=== PATIENT | female | born 1975 | race Caucasian/White ===

== ENCOUNTER 2017-12-07 17:58 | Emergency (ER) | payer SELFPAY ==
[~2017-12-07] VITALS: Ht 167.6 cm; Wt 72.0 kg
[2017-12-07 18:00] VITALS: BP 124/88
== END 2017-12-07 19:54 | disposition left against medical advice (07) ==
LOC: ER 18:07
DX: R42 Dizziness and giddiness (principal); R51 Headache; Z53.21 Procedure and treatment not carried out due to patient leaving prior to being seen by health care provider

== ENCOUNTER 2020-04-10 07:04 | Emergency (ER) | payer SELFPAY ==
[~2020-04-10] VITALS: Ht 170.2 cm; Wt 95.0 kg
[2020-04-10] MEDS ORDERED: SODIUM CHLORIDE 0.9% 1,000 ML IV ONE (08:08)
[2020-04-10 08:29] LABS: EOSINOPHILS % 11.9 % (0.0-5.0); HEMATOCRIT. 46.6 % (36.0-48.0); HEMOGLOBIN. 15.9 g/dL (12.0-16.0); LYMPHOCYTES % 11.8 % (20.0-50.0); MEAN CORPUSCULAR HEMOGLOBIN 30.7 pg (28.0-32.0); MEAN CORPUSCULAR VOLUME 90.2 fL (81.0-99.0); MEAN PLATELET VOLUME 8.6 fl (7.4-10.4); MONOCYTES % 9.3 % (2.0-8.0); PLATELET 264 x1000/uL (130-400); RED BLOOD CELL COUNT 5.17 mill/uL (4.2-5.4); RED CELL DISTRIBUTION WIDTH 14.3 % (11.6-14.6)
[2020-04-10 08:34] LABS: CHLORIDE 106 mEq/L (98-107); PROTHROMBIN TIME 10.7 sec (9.6-11.0)
[2020-04-10 08:39] LABS: ETHANOL BLOOD < 10 mg/dL
[2020-04-10 08:43] LABS: CREATINE KINASE 44 IU/L (26-192)
[2020-04-10 08:51] LABS: HCG SCREEN INDETERMINATE
[2020-04-10 09:00] LABS: CLARITY URINE CLEAR (CLEAR); COLOR URINE YELLOW (YELLOW); KETONES URINE NEGATIVE (NEGATIVE); LEUKOCYTE ESTERASE URINE TRACE (NEGATIVE); NITRITE URINE NEGATIVE (NEGATIVE); OCCULT BLOOD URINE NEGATIVE (NEGATIVE); PROTEIN URINE NEGATIVE (NEGATIVE); SPECIFIC GRAVITY URINE 1.018 (1.005-1.030)
[2020-04-10 09:36] LABS: *BARBITURATES SCREEN URINE NEGATIVE (NEGATIVE)
[2020-04-10 09:37] LABS: *BENZODIAZEPINES SCREEN URINE NEGATIVE (NEGATIVE); *COCAINE SCREEN URINE NEGATIVE (NEGATIVE); METHADONE URINE SCREEN NEGATIVE (NEGATIVE); OPIATES URINE SCREEN NEGATIVE (NEGATIVE); PHENCYCLIDINE URINE SCREEN NEGATIVE (NEGATIVE)
[2020-04-10 09:38] LABS: CANNABINOID URINE SCREEN NEGATIVE (NEGATIVE)
[2020-04-10 09:41] LABS: *AMPHETAMINES SCREEN URINE PRESUMTIVE POSITIVE (NEGATIVE)
[2020-04-10] MEDS ORDERED: KETOROLAC 30MG/ML VIAL IV ONE (10:30)
[2020-04-10] MEDS ORDERED: METRONIDAZOLE 500MG TABLET PO NR (14:30)
[2020-04-10] MEDS: METRONIDAZOLE 500MG TABLET PO ONE ×2 (14:34→15:02)
[2020-04-10 14:35] VITALS: BP 119/87
== END 2020-04-10 14:40 | disposition home or self-care (01) ==
LOC: ER 07:04
DX: R53.1 Weakness (principal); M79.18 Myalgia, other site; F19.10 Other psychoactive substance abuse, uncomplicated
CPT/HCPCS: 36415; 70450; 71045; 80053; 80305; 80307; 80320; 81003; 81025; 82140; 82550; 83690; 83880; 84443; 84484; 84702; 84703; 85025; 85610; 93005; 99285; J7030; G0480